=== PATIENT | female | born 1975 | race Two or more races ===

== ENCOUNTER 2017-10-12 09:16 | Emergency (ER) | payer BC ==
--- NOTE | 2017-10-12 09:51 | Emergency Department Record ---
History of Present Illness - General Chief Complaint: Abdominal Pain Stated Complaint: ABD PAIN/PREG 12 WKS Time Seen by Provider: 10/12/17 09:47 Source: Patient, RN notes reviewed Mode of Arrival: Ambulatory - History of Present Illness Initial Comments: right flank pain and vomiting this am and no diarrhea and she is 12 weeks and she had dry heaves times 7 last night. Patient has two children and she had abdominal surgery june 2017 in [place].torsion of the left ovary. Children are 10 and 7 and c section for both. Vomiting going around the [employer] [facility] at [place]. PMH Chronic hepatitis B from and inactive( Born in [place] and grew up in [place]). frog catcher is in [facility] [place] Onset/Timin -: Hour(s) Location: [facility] Radiation: None Severity: Moderate Severity scale (1-10): 8 Quality: Cramping Consistency: Intermittent Improves With: Nothing Worsens With: Nothing Associated Symptoms: Nausea - Related Data Patient : Yes Home Medications Medication Instructions Recorded Confirmed Last Taken Aspirin [Adult Aspirin Regimen] 81 mg PO DAILY 10/12/17 10/12/17 10/11/17 Allergies Allergy/AdvReac Type Severity Reaction Status Date / Time No Known Drug Allergies Allergy Verified 10/12/17 09:35 Travel Screening - Travel/Exposure Within Last 30 Days Have you traveled within the last 30 days?: Yes Location Detail:: [facility] - Travel/Exposure Within Last Year Have you traveled outside the [place] in the last year?: Yes Location Detail:: [place]/ [place] - Additonal Travel Details Have you been exposed to anyone with a communicable illness?: No - Travel Symptoms Symptom Screening: None Review of Systems Reviewed: No additional complaints except as noted below Constitutional: Reports: As per HPI. Denies: Chills, Fever, Malaise, Night sweats, Weakness, Weight change Eyes: Reports: As per HPI. Denies: Eye discharge, Eye pain, Photophobia, Vision change ENT: Reports: As per HPI. Denies: Congestion, Dental pain, Ear pain, Epistaxis , Hearing loss, Throat pain Respiratory: Reports: As per HPI. Denies: Cough, Dyspnea, Hemoptysis, Stridor, Wheezes Cardiovascular: Reports: As per HPI. Denies: Arrhythmia, Chest pain, Dyspnea on exertion, Edema, Murmurs, Orthopnea, Palpitations, Paroxysmal nocturnal dyspnea, Rheumatic Fever, Syncope Endocrine: Reports: As per HPI. Denies: Fatigue, Heat or cold intolerance, Polydipsia, Polyuria Gastrointestinal: Reports: As per HPI. Denies: Abdominal pain, Constipation, Diarrhea, Hematemesis, Hematochezia, Melena, Nausea, Vomiting Genitourinary: Reports: As per HPI. Denies: Abnormal menses, Discharge, Dyspareunia, Dysuria, Frequency, Hematuria, Incontinence, Retention, Urgency Musculoskeletal: Reports: As per HPI. Denies: Arthralgia, Back pain, Gout, Joint swelling, Myalgia, Neck pain Skin: Reports: As per HPI. Denies: Bruising, Change in color, Change in hair/ nails, Lesions, Pruritus, Rash Neurological: Reports: As per HPI. Denies: Abnormal gait, Confusion, Headache, Numbness, Paresthesias, Seizure, Tingling, Tremors, Vertigo, Weakness Psychiatric: Reports: As per HPI. Denies: Anxiety, Auditory hallucinations, Depression, Homicidal thoughts, Suicidal thoughts, Visual hallucinations Hematological/Lymphatic: Reports: As per HPI. Denies: Anemia, Blood Clots, Easy bleeding, Easy bruising, Swollen glands Past Medical History - SOCIAL HISTORY Smoking Status: Never smoker Alcohol Use: Occasional Drug Use: None - RESPIRATORY Hx Respiratory Disorders: No - CARDIOVASCULAR Hx Cardio Disorders: No - NEURO Hx Neuro Disorders: No - GI Hx GI Disorders: No - Hx Genitourinary Disorders: No - ENDOCRINE Hx Endocrine Disorders: No - MUSCULOSKELETAL Hx Musculoskeletal Disorders: No - PSYCH Hx Psych Problems: No - HEMATOLOGY/ONCOLOGY Hx Hematology/Oncology Disorders: No Family Medical History Any Significant Family History?: Yes Family Hx Comment (NOT TO BE USED IN PLACE OF ITEMS BELOW): Chronic Hep B Hx Cancer: Mother Hx Stroke: Father Physical Exam - General General Appearance: Alert, Oriented x3, Cooperative, No acute distress - Head Head exam: Normal inspection - Eye Eye exam: Normal appearance, PERRL Pupils: Normal accommodation - ENT ENT exam: Normal exam, Mucous membranes moist, Normal external ear exam, Normal orophraynx, TM's normal bilaterally Ear exam: Normal external inspection. negative: External canal tenderness Nasal Exam: Normal inspection. negative: Discharge, Sinus tenderness Mouth exam: Normal external inspection, Tongue normal Teeth exam: Normal inspection. negative: Dental caries Throat exam: Normal inspection. negative: Tonsillar erythema, Tonsillar exudate - Neck Neck exam: Normal inspection, Full ROM. negative: Tenderness - Respiratory Respiratory exam: Normal lung sounds bilaterally. negative: Respiratory distress - Cardiovascular Cardiovascular Exam: Regular rate, Normal rhythm, Normal heart sounds - GI/Abdominal GI/Abdominal exam: Soft, Normal bowel sounds, Tenderness (right lower quad pain ,no rididity or rebound ). negative: Distended, Guarding, Rebound, Rigid - Rectal Rectal exam: Deferred - exam: Enlarged uterus, Normal external exam, Vaginal discharge (increased mucous), Other (tenderness right side of uterus) - Extremities Extremities exam: Normal inspection, Full ROM, Normal capillary refill. negative: Tenderness - Back Back exam: Reports: Normal inspection, Full ROM. Denies: Muscle spasm, Rash noted, Tenderness - Neurological Neurological exam: Alert, Normal gait, Oriented X3, Reflexes normal - Psychiatric Psychiatric exam: Normal affect, Normal mood - Skin Skin exam: Dry, Intact, Normal color, Warm Course Vital Signs 10/12/17 09:36 Temperature 98.4 F Pulse Rate 102 H Respiratory 18 Rate Blood Pressure 127/84 Pulse Ox 99 - Reevaluation(s) Reevaluation #1: discussed appendicitis with patient and friend and her abdominal pain is not getting worse. Tod them what to watch out for and to return to ED if worse 10/12/17 12:37 10/12/17 13:46 Medical Decision Making - Data Complexity MDM Data: Labs Ordered and/or Reviewed (WBC 12,400), X-Ray Ordered and/or Reviewed (abdominal US negative) - Lab Data Result diagrams: 10/12/17 10:23 10/12/17 10:23 Disposition Clinical Impression: Right lower quadrant pain, Round ligament pain, Monial infection of vagina Qualifiers: Weeks of gestation: 12 weeks Qualified Code(s): Z3A.12 - 12 weeks gestation of Disposition: Home, Self-Care Condition: (1) Good Additional Instructions: follow up with frog catcher when back in [place] return to ED if pain is worse , use OTC moistat vaginal cream one applicator at night for 7 days drink fluids and a bland diet Forms: Patient Portal Access Time of Disposition: 12:40 Quality - Quality Measures Quality Measures: N/A - Blood Pressure Screening Does Patient Have Any of the Following: No Blood Pressure Classification: Pre-Hypertensive BP Reading Systolic Measurement: 127 Diastolic Measurement: 84 Screening for High Blood Pressure: < Pre-Hypertensive BP, F/U Documented > [ [id number]] Pre-Hypertensive Follow-up Interventions: Referral to alternative/primary care provider.
[2017-10-12] MEDS ORDERED: 0.9 % SODIUM CHLORIDE 1,000 ML BAG IV ONE (10:07)
[2017-10-12 10:32] LABS: HEMATOCRIT 40.9 % (35.0-47.0); HEMOGLOBIN 14.3 gm/dl (11.6-16.0); MEAN CELL VOLUME 92.3 fl (81-97); MEAN CORPUSCULAR HEMOGLOBIN 32.3 pg (27-33); PLATELET COUNT 423 K/uL (130-400); RED BLOOD COUNT 4.43 M/uL (3.80-5.40); RED CELL DISTRIBUTION WIDTH 13.7 % (11.5-14.5); WHITE BLOOD COUNT W/O DIFF 12.4 K/uL (4.2-12.2)
[2017-10-12 10:38] LABS: BLOOD UREA NITROGEN 7 mg/dL (6-20); CREATININE 0.5 mg/dL (0.5-0.9); EST GLOMERULAR FILTRATION RATE > 60 mL/min
[2017-10-12 10:39] LABS: TOTAL PROTEIN 7.2 g/dL (6.6-8.7)
[2017-10-12 10:41] LABS: GLUCOSE,RANDOM 102 mg/dL (74-109)
[2017-10-12 10:43] LABS: ALT/SGPT 21 U/L (<33); AST/SGOT 18 U/L (10.0-35.0)
[2017-10-12 10:44] LABS: ALBUMIN 4.1 g/dL (4.0-5.0); ALKALINE PHOSPHATASE 45 U/L (35-104); BILIRUBIN,DIRECT < 0.2 mg/dL (0-0.3); LIPASE 37 U/L (13-60)
[2017-10-12 13:15] LABS: URINE APPEARANCE CLEAR; URINE BILIRUBIN NEGATIVE (NEGATIVE); URINE BLOOD NEGATIVE (NEGATIVE); URINE COLOR YELLOW; URINE GLUCOSE (UA) NEGATIVE (NEGATIVE); URINE KETONE 40 mg/dL (NEGATIVE); URINE LEUKOCYTE ESTERASE SMALL (NEGATIVE); URINE NITRITE NEGATIVE (NEGATIVE); URINE PROTEIN NEGATIVE (NEGATIVE); URINE UROBILINOGEN 0.2 E.U./dL (0.20 - 1.00)
[2017-10-12 13:39] LABS: URINE BACTERIA FEW; URINE MUCUS LIGHT; URINE RBC 0 - 2 (NONE SEEN); URINE WBC 0 - 2 (0-2/hpf)
--- NOTE | 2017-10-13 10:59 | ULTRASOUND REPORT ---
EXAM: EMERGENCY FIRST TRIMESTER ULTRASOUND HISTORY: FIRST TRIMESTER , RIGHT FLANK AND RIGHT LOWER QUADRANT PAIN. TECHNIQUE: Emergency real-time ultrasound examination of the pelvis was performed utilizing transabdominal and transvaginal technique. Doppler ultrasound was performed with color flow and spectral analysis. Comparison: None. Surgical history: Prior left ovarian resection. FINDINGS: TRANSABDOMINAL PELVIC ULTRASOUND: The uterus is identified measuring about 7.5 cm in AP x 11.3 cm in transverse diameters x 12.9 cm in length. Within the enlarged uterus is seen an intrauterine gestational sac containing a single viable intrauterine fetus. The amount of amniotic fluid appears unremarkable. The placenta is not well evaluated at this early gestational age. The maternal left ovary is identified consistent with the surgical history. The maternal right ovary is seen measuring 5.6 cm in size and demonstrating arterial as well as venous flow with color flow and spectral analysis Doppler. Multiple follicles are present in the right ovary. CRL measurements of the intrauterine fetus were up to 6.51 cm corresponding to an estimated gestational age of 12 weeks 6 days. Cardiac as well as generalized activity are evident with the heart beat detected at 138 b.p.m. consistent with a viable intrauterine . Very limited evaluation of the anatomy at this early stage. Head circumference of 7.75 corresponds to an estimated gestational age of 12 weeks 5 days. The femur length measurement of 1.14 cm corresponds to an estimated gestational age of 13 weeks 2 days. The abdominal circumference of 5.98 cm corresponds to an estimated gestational age of 13 weeks 0 day. With all of the parameters are included, composite estimated gestational age today was 12 weeks 6 days giving an estimated date of delivery of 04/20/18. The fetus is currently in a breech presentation although not well demonstrated as mentioned earlier, the placenta is probably developing posteriorly with no definite previa seen. TRANSVAGINAL PELVIC ULTRASOUND: In an effort to better visualize the cervical region in particular, transvaginal study was also performed. The cervical length is about 3.9 cm and appears closed. There are a couple tiny cervical nabothian cysts. A single viable fetus is again seen transvaginally. Limited evaluation of the anatomy at this early age and follow-up ultrasound at approximately 22 weeks gestation is suggested to more fully evaluate the anatomy as well as the placenta and amniotic fluid. The maternal right ovary is seen measuring about 6.6 cm in size and containing a number of follicles as well as probably a dominant multiseptated cystic mass presumably the corpus luteum. No free fluid evident. The left ovary is again not identified consistent with the surgical history. The estimated weight today was 67.6 grams. The cephalic index of 65.79 was slightly below the normal range (70 -86) of uncertain significance. This could be rechecked at the time of a follow -up as well. The heart rate obtained transvaginally measured up to 154 b.p.m. consistent with viable intrauterine . IMPRESSION: 1. SINGLE VIABLE INTRAUTERINE IN THE BREECH PRESENTATION WITH THE ESTIMATED GESTATIONAL AGE OF 12 WEEKS 6 DAYS GIVING AN ESTIMATED DATE OF DELIVERY OF 04/20/18. 2. LIMITED EVALUATION OF THE ANATOMY, PLACENTA AND AMNIOTIC FLUID AT THIS EARLY AGE. FOLLOW-UP ROUTINE OBSTETRICAL SONOGRAPHY AT APPROXIMATELY 22 WEEKS GESTATION IS SUGGESTED. MILDLY DECREASED CEPHALIC INDEX OF 65.79 OF QUESTIONABLE SIGNIFICANCE CAN BE RECHECKED AT THAT TIME WELL. 3. POSTOP LEFT OOPHORECTOMY. 4. MULTIPLE OVARIAN CYSTS INCLUDING PROBABLY A DOMINANT COMPLEX MULTISEPTATED CORPUS LUTEUM RIGHT OVARY. JOB NUMBER: [id number] [facility]
[2017-10-13 12:02] LABS: GC SPECIMEN TYPE Cervix
--- NOTE | 2017-10-13 13:28 | ULTRASOUND REPORT ---
EXAM: EMERGENCY COMPLETE ABDOMEN ULTRASOUND HISTORY: RIGHT LOWER QUADRANT AND RIGHT FLANK PAIN. TECHNIQUE: Complete real-time ultrasound of the abdomen was obtained. Comparison: None. FINDINGS: The majority of the pancreas is visualized and appears negative with no pancreatic mass or peripancreatic fluid collection evident. The abdominal aorta appears negative with no aneurysm seen. The IVC was negative as seen. The liver appears negative with no hepatic mass or intrahepatic biliary dilatation seen. No gallstones seen within the gallbladder and no pericholecystic fluid collection evident. The express manager indicates a negative sonographic Jin's sign as well. The right kidney measures 10.6 cm in length with no hydronephrosis evident. The common duct was seen and was of normal caliber. The left kidney measures 11.9 cm in length with no definite hydronephrosis on the left. The spleen appears negative with no splenic mass evident. IMPRESSION: EMERGENCY ABDOMEN ULTRASOUND APPEARS NEGATIVE. NO GALLSTONES OR BILIARY DILATATION SEEN. NO HYDRONEPHROSIS EVIDENT. JOB NUMBER: [id number] [facility]
== END 2017-10-12 14:00 | disposition home or self-care (01) ==
LOC: ER 09:16
DX: O23.591 Infection of other part of genital tract in pregnancy, first trimester (principal); N76.0 Acute vaginitis; O26.899 Other specified pregnancy related conditions, unspecified trimester; R10.31 Right lower quadrant pain; O34.81 Maternal care for other abnormalities of pelvic organs, first trimester; N83.11 Corpus luteum cyst of right ovary; R11.2 Nausea with vomiting, unspecified; Z3A.12 12 weeks gestation of pregnancy
CPT/HCPCS: 99284 ×2; 83690; 80076; 84702; 80048; 81001; 81025; 85027; 76700; 76817; 76801; Q0111; 87210